=== PATIENT | female | born 1995 | race Caucasian/White ===

== ENCOUNTER 2022-03-28 06:07 | Inpatient (IN) ==
[2022-03-28] MEDS ORDERED: CARBOPROST TROMETHAMINE 250 MCG/ML AMP IM PRN (06:33)
[2022-03-28] MEDS ORDERED: LACTATED RINGERS 500 ML IV PRN (06:33)
[2022-03-28] MEDS ORDERED: miSOPROStoL 200 MCG TABLET RECTAL PRN (06:33)
[2022-03-28] MEDS ORDERED: OXYTOCIN/LR 20 UNIT/1,000 ML BAG IV ONE ×3 (06:33→18:50)
[2022-03-28] MEDS ORDERED: LACTATED RINGERS 250 ML IV ONE (06:33)
[2022-03-28] MEDS ORDERED: TRANEXAMIC ACID 1,000 MG in SODIUM CHLORIDE 0.9% 100 ML IV PRN (06:33)
[2022-03-28] MEDS ORDERED: ONDANSETRON 4 MG/2 ML VIAL IV PRN ×2 (06:33→18:50)
[2022-03-28] MEDS ORDERED: METHYLERGONOVINE 0.2 MG/1 ML AMP IM PRN (06:33)
[2022-03-28] MEDS ORDERED: OXYTOCIN/LR 20 UNIT/1,000 ML BAG IV SCH (07:00)
[2022-03-28 07:02] LABS: Basophils % 0.4 % (0.0-0.8); Eosinophils # 0.1 10*3/uL (0.0-0.87); Eosinophils % 0.8 % (0.00-10.9); Hematocrit 33.1 VOL% (35.7-47.0); Hemoglobin 10.6 GM/DL (12.0-16.0); Immature Granulocytes % 0.2 %; Immature Granulocytes Absolute 0.02 #; Lymphocytes # 2.3 10*3/uL (1.4-4.0); Lymphocytes % 26.3 % (21.3-54.2); Mean Corpuscular Volume 82.3 FL (87-102); Mean Platelet Volume 10.8 FL (9.6-12.0); Monocytes # 0.7 10*3/uL (0.11-0.8); Monocytes % 8.1 % (1.7-12.7); Neutrophils % 64.2 % (38.7-73.9); Platelet Count 173 T/CUMM (130-400); Red Blood Count 4.02 MC/CUMM (3.8-5.5); Red Cell Distribution Width 14.9 % (9.3-17.3); White Blood Count 8.6 T/CUMM (4-12)
[2022-03-28] MEDS: LACTATED RINGERS 1,000 ML IV SCH ×2 (07:52→12:05)
[2022-03-28] MEDS ORDERED: hydrOXYzine HCL 25 MG/1 ML VIAL IM PRN (08:01)
[2022-03-28] MEDS ORDERED: diphenhydrAMINE 50 MG/1 ML VIAL IV PRN ×2 (08:01)
[2022-03-28] MEDS ORDERED: NALOXONE 0.4 MG/ML VIAL IV PRN (08:01)
[2022-03-28] MEDS ORDERED: ePHEDrine 50 MG/ML VIAL IV PRN (08:01)
[2022-03-28] MEDS ORDERED: FAMOTIDINE 20 MG/2 ML VIAL IV ONE (08:01)
[2022-03-28] MEDS ORDERED: CITRIC ACID/SODIUM CITRATE 30 ML UDCUP PO ONE (08:01)
[2022-03-28] MEDS ORDERED: PROMETHAZINE 25 MG/1 ML VIAL IM ONE (08:01)
[2022-03-28] MEDS ORDERED: fentaNYL 2 MCG/ROPIV 0.2% EPID 100 ML EPIDURAL SCH (08:30)
[2022-03-28 14:41] LABS: Urine Appearance Clear (Clear); Urine Color Yellow (Yellow)
[2022-03-28 14:42] LABS: Bilirubin,Urine Negative (Negative); Blood, Urine Negative (Negative); Glucose,Urine (UA) Negative (Negative); Ketones,Urine 40 mg/dL (Negative); Nitrite,Urine Negative (Negative); Protein,Urine Negative (Negative); Urine Specific Gravity 1.015 (1.001-1.035); Urine Urobilinogen 0.2 eU/dL (<2.0)
[2022-03-28 14:47] LABS: Mucus,Urine Occasional /LPF (Occasional); RBC,Urine 1 /HPF (0-4)
[2022-03-28] MEDS ORDERED: miSOPROStoL 200 MCG TABLET ONE (17:58)
[2022-03-28] MEDS ORDERED: METHYLERGONOVINE 0.2 MG/1 ML AMP ONE (17:58)
[2022-03-28] MEDS ORDERED: CARBOPROST TROMETHAMINE 250 MCG/ML AMP IM ONE (17:58)
[2022-03-28] MEDS ORDERED: TRANEXAMIC ACID 1,000 MG/10 ML VIAL ONE (17:58)
[2022-03-28] MEDS ORDERED: SODIUM CHLORIDE 0.9% 0 ML IV ONE (17:58)
[2022-03-28] MEDS ORDERED: OXYTOCIN/LR 30 UNIT/1,000 ML BAG IV ONE (18:33)
[2022-03-28 18:45] LABS: Cord Venous Blood HCO3 20.7 MMOL/L; Cord Venous Blood PCO2 29.3 MMHG; Cord Venous Blood PO2 27.4
[2022-03-28] MEDS ORDERED: MEASLES/MUMPS/RUBELLA VACCINE 0.5 ML VIAL SUBCUT ONE (18:50)
[2022-03-28] MEDS ORDERED: BENZOCAINE 20%/MENTHOL 0.5% SPRAY 56 GM CAN TOP PRN (18:50)
[2022-03-28] MEDS ORDERED: HYDROCORTISONE 2.5% RECTAL CREAM 30 GM TUBE TOP PRN (18:50)
[2022-03-28] MEDS ORDERED: WITCH HAZEL PADS 100/JAR TOP PRN (18:50)
[2022-03-28] MEDS ORDERED: RHO(D) IMMUNE GLOBULIN 300 MCG SYRINGE IM ONE (18:50)
[2022-03-28] MEDS ORDERED: BISACODYL 10 MG SUPP RECTAL PRN (18:50)
[2022-03-28] MEDS ORDERED: oxyCODONE/ACETAMINOPHEN 5-325 MG TABLET PO PRN ×2 (18:50)
[2022-03-28] MEDS ORDERED: LANOLIN 50% CREAM 0.3 OZ TUBE TOP PRN (18:50)
[2022-03-28] MEDS ORDERED: DIPH/TET/ACEL PERT BOOSTER VACCINE 0.5 ML VIAL IM ONE (18:50)
[2022-03-28] MEDS ORDERED: ACETAMINOPHEN 325 MG TABLET PO PRN (18:50)
[2022-03-28] MEDS: IBUPROFEN 800 MG TABLET PO PRN (23:58)
[2022-03-28] MEDS: DOCUSATE SODIUM 100 MG CAPSULE PO SCH (23:58)
[2022-03-29 04:29] LABS: Basophils % 0.3 % (0.0-0.8); Eosinophils # 0.1 10*3/uL (0.0-0.87); Eosinophils % 0.4 % (0.00-10.9); Hematocrit 30.4 VOL% (35.7-47.0); Hemoglobin 9.9 GM/DL (12.0-16.0); Immature Granulocytes % 0.5 %; Immature Granulocytes Absolute 0.06 #; Lymphocytes # 1.7 10*3/uL (1.4-4.0); Lymphocytes % 14.6 % (21.3-54.2); Mean Corpuscular HGB Conc 32.6 GM/DL (32-36); Mean Corpuscular Volume 82.2 FL (87-102); Mean Platelet Volume 11.6 FL (9.6-12.0); Monocytes # 0.8 10*3/uL (0.11-0.8); Monocytes % 7.2 % (1.7-12.7); Platelet Count 168 T/CUMM (130-400); Red Cell Distribution Width 14.7 % (9.3-17.3); White Blood Count 11.3 T/CUMM (4-12)
[2022-03-29] MEDS: IBUPROFEN 800 MG TABLET PO PRN ×3 (08:05→22:22)
[2022-03-29] MEDS: DOCUSATE SODIUM 100 MG CAPSULE PO SCH ×2 (10:09→22:22)
[2022-03-30 07:32] VITALS: BP 105/61
[2022-03-30] MEDS: DOCUSATE SODIUM 100 MG CAPSULE PO SCH (08:27)
[2022-03-30] MEDS: IBUPROFEN 800 MG TABLET PO PRN (08:27)
== END 2022-03-30 13:35 | disposition home or self-care (01) | DRG 807 ==
LOC: N.LD 06:07 → N.OB 22:41
PROVIDERS: ADMIT Obstetrics & Gynecology; ATTEND Obstetrics & Gynecology